=== PATIENT | female | born 1925 | race Caucasian/White ===

== ENCOUNTER → 2016-11-16 | Outpatient (CLI) | payer MEDICARE, OTHER, MEDICAID ==
[~2016-11-16] MED LIST: AMARYL2 MG PO; ASPIRIN (CHILDR81 MG PO; ATIVAN 0.5MG0.5 MG PO; BENADRYL25 MG PO; COLACE100 MG PO; DULCOLAX10 MG R; FEOSOL325 MG PO; GLUCOPHAGE1000 MG PO; LACTINEX (FLORA1 TAB PO; LIPITOR20 M1 PO; MILK OF MA400 MG/5 M PO; MIRALAX17 GM PO; NORVASC2.5 MG PO; OXYCODONE HCL10 MG PO; PLAVIX75 MG PO; PRINIVIL OR ZES10 MG PO; REQUIP2 MG PO; SENNOSIDES-DOC1 EACH PO; SUDAFED30 MG PO; TYLENOL EXTRA500 MG PO; TYLENOL325 MG PO; ULTRAM50 MG PO; ZOFRAN4 MG PO
== END | disposition disaster alternative care site (69) ==
LOC: LJOHN2 11-15 11:59
DX: E11.3299 Type 2 diabetes mellitus with mild nonproliferative diabetic retinopathy without macular edema, unspecified eye (principal)

== ENCOUNTER → 2017-03-25 | Outpatient (CLI) | payer MEDICARE, OTHER, MEDICAID ==
[2017-03-29 14:14] LABS: ALBUMIN 3.5 g/dL (3.3-4.8); ALBUMIN 55.3 % (45.0-80.0); ALPHA 1 0.1 g/dL (0.1-0.4); ALPHA 2 0.8 g/dL (0.5-1.1); GAMMA 0.8 g/dL (0.6-1.5); PROTEIN, TOTAL 6.4 g/dL (6.1-7.8)
== END | disposition disaster alternative care site (69) ==
LOC: GLAB 16:13
PROVIDERS: Orthopaedic Surgery
DX: C90.00 Multiple myeloma not having achieved remission (principal); M25.561 Pain in right knee